=== PATIENT | male | born 1980 | race African-American/Black ===

== ENCOUNTER 2019-11-17 08:40 | Day surgery (SDC) | payer OTHER ==
[2019-11-16 08:52] LABS: ANION GAP 10.3 mmol/L (8-16); CALCIUM 8.7 mg/dL (8.5-10.1); CARBON DIOXIDE 25.5 mmol/L (21.0-32.0); CREATININE - SERUM 1.2 mg/dL (0.6-1.3); POTASSIUM - SERUM 3.8 mmol/L (3.5-5.1)
[2019-11-16 09:20] LABS: HEMATOCRIT 45.7 % (42.0-54.0); HEMOGLOBIN 14.8 g/dL (13.5-17.5); MCH 26.6 pg (26.0-34.0); MCHC 32.4 g/dL (31.0-37.0); MCV 82.2 fL (80.0-100.0); MEAN PLATELET VOLUME 9.7 fL (7.4-10.4); RBC 5.56 10x6/uL (4.20-6.10); RDW 14.6 % (11.5-14.5); WBC 7.3 10x3/uL (4.8-10.8)
[~2019-11-17] VITALS: Ht 185.4 cm; Wt 176.9 kg
--- NOTE | ~2019-11-17 | OP ---
PATIENT NAME: ARIANNA DURAN MEDICAL RECORD: [id number] LOCATION:D.[facility] ADMISSION DATE: SURGEON: JOSE CARLOS CASTRO, PATRICE CHRISTIAN DATE OF OPERATION: 11/17/2019 PREOPERATIVE DIAGNOSES: 1. Medial meniscus tear of the right knee. 2. Lateral meniscus tear of the right knee. 3. Possible anterior cruciate ligament tear. POSTOPERATIVE DIAGNOSES: 1. Medial meniscus tear of the right knee. 2. Lateral meniscus tear of the right knee. PROCEDURES: 1. Arthroscopic partial medial meniscectomy of the right knee. 2. Arthroscopic partial lateral meniscectomy of the right knee. SURGEON: Patrice Dwyer MD ANESTHESIA: General. INTRAOPERATIVE COMPLICATIONS: None. SUMMARY OF PATHOLOGIC FINDINGS: Upon both manual examination as well as arthroscopic examination, the patient's anterior cruciate ligament was completely intact with good endpoints. He had a complex tear of the posterior horn of the medial meniscus and a horizontal tear of the lateral meniscus. OPERATIVE SUMMARY IN DETAIL: After obtaining the appropriate preoperative orthopedic surgery consents as well as anesthetic consultation, evaluation and clearance, the patient was brought to the operating room and placed on the operating table in a supine position. After adequate general laryngeal mask was administered, tourniquet was placed in the proximal aspect of the right lower extremity. Right lower extremity was then prepped and draped in routine sterile fashion. The leg was elevated and exsanguinated. Tourniquet inflated to 350 mmHg. At this time, the appropriate timeout was taken and agreed upon by all given the patient's unique identifiers. Routine inferolateral portal was established followed a superomedial portal and inferomedial portal. Diagnostic arthroscopy showed the patient to have a complex medial meniscus tear emanating from just lateral to the meniscal root to approximately the 2 o'clock position. This was debrided back to stable meniscal elements using both meniscotome as well as an arthroscopic resector. The leg was then put in a [id number] position to approach the lateral meniscus. The patient had substantial tearing of the lateral meniscus with a large undersurface tear that was debrided in its entirety. This was followed by trimming the torn portions of the upper surface using again an arthroscopic resector as well as a meniscotome. Having completed this, the knee was infiltrated with 30 cc of 0.25% Marcaine with epinephrine, 80 mg of Depo-Medrol. Arthroscopy portals were closed in routine interrupted fashion using 4-0 Prolene. Sterile dressing was applied. The patient was awakened and taken to recovery room in stable condition. All final needle and sponge counts were correct. TRANSINT:[id number] Voice Confirmation ID: [id number] DOCUMENT ID: [id number] OPERATIVE REPORT [id number] ARIANNA DURAN MD, PATRICE CHRISTIAN CC: [id number] DICTATION DATE: 11/17/19 1230 CHEMIST ORGANIC: 11/17/19 1632 [facility] [place] 11/17/19 [facility] [address] [place] [address]
[~2019-11-17 08:40] MED LIST: COZAAR50 MG PO
[2019-11-17 09:17] VITALS: BP 185/102; Ht 185.4 cm; Wt 176.9 kg
[2019-11-17] MEDS ORDERED: HYDROCODON-ACE1 EA10 PO (12:03)
== END 2019-11-17 14:35 | disposition home or self-care (01) ==
LOC: D.OPS 08:40 → D.PAN 11:00 → D.OPS 11:00
PROVIDERS: Anesthesiology; ATTEND Orthopaedic Surgery
DX: S83.281A Other tear of lateral meniscus, current injury, right knee, initial encounter (principal); S83.241A Other tear of medial meniscus, current injury, right knee, initial encounter; X58.XXXA Exposure to other specified factors, initial encounter; I10 Essential (primary) hypertension; M25.561 Pain in right knee